=== PATIENT | female | born 1945 | race Caucasian/White ===

== ENCOUNTER 2018-06-13 01:32 | Emergency (ER) | payer MEDICARE, MEDICAID ==
[~2018-06-13] VITALS: Ht 139.7 cm; Wt 70.8 kg
[~2018-06-13 01:32] MED LIST: ADV50250 IH; ALBU18HF2 IH; BAC10T PO; BENZ-16 PO; DICL100G15 TP; DULO-31 PO; EZET1TAB33; FENT-90 TD; FLUT16SP2 NS; FURO40TA4 PO; INSU100V36 SQ; LIDO700A22 TP; LYR25C PO; NITR0.4T51 SL; OXYC5CAP PO; PANT40TA39 PO; PAT0.1OS OP; POLY17PO10 PO; PRED10TA23 PO; PRED50TA PO; ROPI1TAB17 PO; TOP25T PO; VALS40TA2 PO; ZOF4T PO; ZOLP5TAB8 PO
[2018-06-13 01:36] VITALS: BP 127/59
[2018-06-13] MEDS ORDERED: HYDROcodone/acetaminophen 5mg/325mg tablet PO ONE (02:50)
[2018-06-13] MEDS ORDERED: mag hydrox/Alum hydrox/simeth 30ml oral suspension PO ONE (02:50)
[2018-06-13] MEDS ORDERED: LIDOcaine Viscous 15ml cup PO ONE (02:50)
== END 2018-06-13 04:11 | disposition home or self-care (01) ==
LOC: ER 01:33
DX: R13.10 Dysphagia, unspecified (principal); J02.9 Acute pharyngitis, unspecified; R07.89 Other chest pain; R05 Cough; I25.10 Atherosclerotic heart disease of native coronary artery without angina pectoris; J45.909 Unspecified asthma, uncomplicated; E11.42 Type 2 diabetes mellitus with diabetic polyneuropathy; G89.29 Other chronic pain; Z90.710 Acquired absence of both cervix and uterus; Z95.1 Presence of aortocoronary bypass graft; Z98.890 Other specified postprocedural states; Z56.0 Unemployment, unspecified; Z88.5 Allergy status to narcotic agent; Z79.4 Long term (current) use of insulin; Z79.899 Other long term (current) drug therapy
CPT/HCPCS: 99283

== ENCOUNTER 2021-02-17 02:20 | Emergency (ER) | payer MEDICARE, MEDICAID ==
[~2021-02-17] VITALS: Ht 139.7 cm; Wt 68.1 kg
[~2021-02-17 02:20] MED LIST changes: -BENZ-16 PO; -PRED10TA23 PO
[2021-02-17] MEDS ORDERED: ondansetron/PF 4mg/2ml inj IV ONE (02:55)
[2021-02-17] MEDS ORDERED: normal saline 1000ML IV soln IVB ONE (02:55)
[2021-02-17] MEDS ORDERED: ONDA4TAB6 PO ×2 (02:57)
[2021-02-17 03:27] LABS: BASOPHILS % (AUTO) 0.2 % (0-1); EOSINOPHILS # (AUTO) 0.1 X10'3 (0-0.9); EOSINOPHILS % (AUTO) 0.6 % (0-6); HEMATOCRIT 37.9 % (35.0-45.0); HEMOGLOBIN 12.4 g/dl (12.0-16.0); LYMPHOCYTES # (AUTO) 0.6 X10'3 (1.1-4.8); LYMPHOCYTES % (AUTO) 5.8 % (21-51); MEAN CORPUSCULAR HEMOGLOBIN 30.9 PG (27.0-31.0); MEAN CORPUSCULAR HGB CONC 32.6 g/dL (33.0-36.5); MEAN CORPUSCULAR VOLUME 94.6 FL (78-98); MEAN PLATELET VOLUME 8.2 FL (7.4-10.4); MONOCYTES # (AUTO) 0.5 X10'3 (0-0.9); MONOCYTES % (AUTO) 4.3 % (2-12); NEUTROPHILS # (AUTO) 9.8 X10'3 (1.8-7.7); NEUTROPHILS % (AUTO) 89.1 % (42-75); PLATELET COUNT 191 X10'3 (140-440); RED BLOOD COUNT 4.01 X10'6 (4.20-5.60); RED CELL DISTRIBUTION WIDTH 14.2 % (11.5-14.5)
[2021-02-17 03:38] LABS: ALANINE AMINOTRANSFERASE 35 U/L (12-78); ALBUMIN 3.6 G/DL (3.4-5.0); ALBUMIN/GLOBULIN RATIO 1.1 (1.1-1.5); ALKALINE PHOSPHATASE 66 IU/L (46-116); ANION GAP 12 (8-16); ASPARTATE AMINO TRANSFERASE 33 U/L (10-37); BILIRUBIN,TOTAL 0.5 MG/DL (0.1-1.0); BLOOD UREA NITROGEN 32 MG/DL (7-18); BUN/CREATININE RATIO 23.2 (6.6-38.0); CALCIUM 8.9 MG/DL (8.5-10.1); CHLORIDE 104 MMOL/L (99-107); CREATININE 1.38 MG/DL (0.40-0.90); GLUCOSE 162 MG/DL (70-104); POTASSIUM 3.8 MMOL/L (3.5-5.1); SODIUM 141 MMOL/L (135-145); TOTAL CARBON DIOXIDE 24.7 MMOL/L (24-32); TOTAL PROTEIN 6.9 G/DL (6.4-8.2); eGFR 37 ML/MIN
[2021-02-17 03:46] VITALS: BP 112/95
[2021-02-17 03:51] LABS: CLARITY,URINE CLEAR (Clear); COLOR,URINE YELLOW (Yellow); GLUCOSE, URINE NEGATIVE (Neg); KETONES,URINE TRACE mg/dl (Neg); LEUKOCYTE ESTERASE ,URINE NEGATIVE (Neg); NITRITES, URINE NEGATIVE (Neg); OCCULT BLOOD,URINE NEGATIVE (Neg); PROTEIN,URINE NEGATIVE (Neg); UROBILINOGEN,URINE 0.2 E.U/dL (0.2-1.0)
[2021-02-17 03:56] LABS: UA COLLECTION TYPE CLN CATCH MIDSTREAM
== END 2021-02-17 04:56 | disposition home or self-care (01) ==
LOC: ER 02:21
DX: A08.4 Viral intestinal infection, unspecified (principal); A05.9 Bacterial foodborne intoxication, unspecified; R11.2 Nausea with vomiting, unspecified; R19.7 Diarrhea, unspecified; R10.13 Epigastric pain; E11.42 Type 2 diabetes mellitus with diabetic polyneuropathy; E11.22 Type 2 diabetes mellitus with diabetic chronic kidney disease; N18.9 Chronic kidney disease, unspecified; I25.10 Atherosclerotic heart disease of native coronary artery without angina pectoris; J45.909 Unspecified asthma, uncomplicated; G89.29 Other chronic pain; Z90.710 Acquired absence of both cervix and uterus; Z98.890 Other specified postprocedural states; Z56.0 Unemployment, unspecified; Z88.5 Allergy status to narcotic agent; Z79.4 Long term (current) use of insulin; Z79.899 Other long term (current) drug therapy
CPT/HCPCS: 80053; 81003; 84484; 85025; 93005; 96374; 99284; J2405; J7030

== ENCOUNTER 2024-09-05 14:18 | Outpatient (CLI) | payer MEDICARE, MEDICAID ==
[~2024-09-05 14:18] MED LIST changes: +ONDA4TAB6 PO
--- NOTE | 2024-09-05 16:39 | VASCULAR REPORT ---
Carotid Duplex Clinical History: Hypertension, hyperlipidemia Comparison: None Technique: Duplex Doppler evaluation of the extracranial carotid and vertebral arteries including color Doppler and spectral/pulsed waveform analysis was performed. Findings: RIGHT SIDE: The peak systolic velocities are 61 cm/s in the CCA, 242 cm/s in the ICA. The ICA/CCA ratio is 4.9. The external carotid artery is patent with peak systolic velocity of 91 cm/s proximally. The subclavian artery is patent with peak systolic velocity of 101 cm/s. There is appropriate antegrade flow in the right vertebral artery. LEFT SIDE: The peak systolic velocities are 76 cm/s in the CCA, 126 cm/s in the ICA. The ICA/CCA ratio is 1.88. The external carotid artery is patent with peak systolic velocity of 80 cm/s proximally. The subclavian artery is patent with peak systolic velocity of 110 cm/s. There is appropriate antegrade flow in the left vertebral artery. IMPRESSION: Greater than 70% stenosis within the right internal carotid artery. Less than 50% stenosis in the left internal carotid artery. Less than 50% stenosis within the external carotid and common carotid arteries, bilaterally. Antegrade flow in bilateral vertebral arteries. Multiphasic waveforms in bilateral subclavian arteri es. Reference: Radiology 2003; [id number] Normal ICA PSV is <125 cm/sec and no plaque or intimal thickening is visible sonographically addition al criteria include ICA/CCA PSV ratio <2.0 and ICA EDV <40 cm/sec <50% ICA stenosis ICA PSV is <125 cm/sec and plaque or intimal thickening is visible sonographically additional criteria include ICA/CCA PSV ratio <2.0 and ICA EDV <40 cm/sec 50-69% ICA stenosis ICA PSV is 125-230 cm/sec and plaque is visible sonographically additional criter ia include ICA/CCA PSV ratio of 2.0-4.0 and ICA EDV of 40-100 cm/sec 70% ICA stenosis but less than near occlusion ICA PSV is >230 cm/sec and visible plaque and luminal narrowing are seen at thomas-scale and color Doppler ultrasound (the higher the Doppler parameters lie above the threshold of 230 cm/sec, the greater the likelihood of severe disease) additional criteria include ICA/CCA PSV ratio >4 and ICA EDV >100 cm/sec
== END 2024-09-05 23:59 | disposition home or self-care (01) ==
LOC: VAS 14:18
PROVIDERS: ATTEND Internal Medicine Cardiovascular Disease
DX: I65.23 Occlusion and stenosis of bilateral carotid arteries (principal)
CPT/HCPCS: 93880